=== PATIENT | male | born 1975 | race Caucasian/White ===

== ENCOUNTER 2021-05-23 20:41 | Emergency (ER) | payer SELFPAY ==
[~2021-05-23] VITALS: Ht 177.8 cm; Wt 77.1 kg
[2021-05-23 20:41] VITALS: BP_SYST 193
--- NOTE | 2021-05-23 20:41 | NUR ---
Placed in room 01 . Placed on monitoring manager, blood pressure machine and pulse oximeter. To gown for exam. Side rails up. Report given to CARLOS Benson
--- NOTE | 2021-05-23 21:05 | NUR ---
ALESSANDRO DASILVA at bedside examining patient.
[2021-05-23] MEDS ORDERED: NACL 0.9% 2,000 ML IV ONE (21:15)
[2021-05-23] MEDS ORDERED: LORazepam 2 MG/ML VIAL IVP ONE (21:15)
[2021-05-23] MEDS ORDERED: chlordiazePOXIDE HCL 25 MG CAPSULE PO ONE (21:30)
[2021-05-23 21:34] LABS: BASOPHILS # (AUTO) 0.1 K/uL (0.0-0.2); BASOPHILS % (AUTO) 0.7 % (0.0-2.0); EOSINOPHILS # (AUTO) 0.1 K/uL (0.0-0.4); EOSINOPHILS % (AUTO) 1.1 % (0.0-4.0); HEMATOCRIT 43.2 % (36-54); HEMOGLOBIN 14.4 g/dL (14.0-18.0); LYMPHOCYTES # (AUTO) 2.2 K/uL (1.0-5.5); LYMPHOCYTES % (AUTO) 22.8 % (20.5-51.5); MEAN CORPUSCULAR HEMOGLOBIN 27 pg (27-31); MEAN CORPUSCULAR HGB CONC 33 % (32-36); MEAN CORPUSCULAR VOLUME 83 fL (79.0-98.0); MONOCYTES # (AUTO) 0.5 K/uL (0.0-1.0); MONOCYTES % (AUTO) 5.1 % (1.7-9.3); NEUTROPHILS # (AUTO) 6.8 K/uL (1.8-7.7); NEUTROPHILS % (AUTO) 70.3 % (40.0-70.0); PLATELET COUNT (AUTO) 204 K/uL (130-430); RED BLOOD CELL COUNT(AUTO) 5.23 MIL/uL (4.2-6.2); RED CELL DISTRIBUTION WIDTH 14.5 % (9.0-15.0); WHITE BLOOD COUNT (AUTO) 9.7 K/uL (4.8-10.8)
[2021-05-23 21:54] LABS: CREATININE 0.91 mg/dL (0.55-1.30); POTASSIUM 3.7 mmol/L (3.5-5.1)
[2021-05-23 22:06] LABS: TOTAL BILIRUBIN 0.9 mg/dL (0.0-1.0)
--- NOTE | 2021-05-23 22:22 | NUR ---
Pt resting comfortable, no complaints of pain
[2021-05-23] MEDS ORDERED: hydrALAZINE HCL 20 MG/ML VIAL IVP ONE (22:45)
--- NOTE | 2021-05-23 22:45 | NUR ---
Reported htn, orders to follow
--- NOTE | 2021-05-23 22:55 | NUR ---
No difficets noted with neuro checks
[2021-05-24 00:35] LABS: BARBITURATE, URINE NEGATIVE (NEG <=200); METHAMPHETAMINES SCREEN,URINE NEGATIVE (NEG <=500); URINE AMPHETAMINE NEGATIVE (NEG <=500)
[2021-05-24 00:36] LABS: BENZODIAZEPINE, URINE NEGATIVE (NEG <=150); CANNABINOID, URINE POSITIVE (NEG <=50); COCAINE, URINE NEGATIVE (NEG <=150); OPIATE, URINE NEGATIVE (NEG <=100); PHENCYCLIDINE SCREEN,URINE NEGATIVE (NEG <=25); UR TRICYCLIC ANTIDEPRESSANTS NEGATIVE (NEG <=300); URINE METHADONE NEGATIVE (NEG <=200); URINE OXYCODONE SCREEN NEGATIVE (NEG <=100); URINE PROPOXYPHENE SCREEN NEGATIVE (NEG <=300)
--- NOTE | 2021-05-24 01:25 | NUR ---
Reported htn, orders to follow
[2021-05-24] MEDS ORDERED: LISINOPRIL 10 MG TABLET (PRINIVIL) PO ONE (01:30)
--- NOTE | 2021-05-24 05:51 | NUR ---
Pt sleep no signs of distress or pain
--- NOTE | 2021-05-24 07:31 | NUR ---
PT WITH EYES CLOSED, ON GURNEY WELL. PT AAOX3, IN NAD. PLAN OF CARE INFORMED, VERBALIZED UNDERSTANDING. VSS.
--- NOTE | 2021-05-24 08:50 | NUR ---
MINDY [facility]ART [facility] HERE TO MERCHANDISE FLOW TEAM MEMBER PT TO TRANSFER TO [facility], ACCEPTING DR HENRIQUE Thorpe, REPORT GIVEN TO EKTA THURMAN RN.PT STABLE FOR TRANSFER. VSS, PT AAOX3, IN NAD. NO NEURO DEFICITS NOTED. WALKED TO [facility]. AT BEDSIDE, WILL BE DRBALBIR THERE.
[2021-05-24 08:52] VITALS: BP_SYST 117
--- NOTE | 2021-05-24 08:54 | NUR ---
Patient to be transferred to [facility]. Is being transferred due to higher level of care/INSURANCE. Receiving facility has accepting physician and available space. ER physician has signed transfer form. Patient or responsible alliance party has agreed to transfer and signed form. Patient belongings inventoried and will be sent with patient. Copy of nursing notes, lab reports, EKG, Physicians Orders and X-rays to be sent with patient. Report called to at receiving facility. Receiving physician is . ambulance service has been called for transfer.
== END 2021-05-24 08:52 | disposition short-term general hospital (02) ==
LOC: SED 20:41
DX: S00.83XA Contusion of other part of head, initial encounter (principal); R32 Unspecified urinary incontinence; I10 Essential (primary) hypertension; F10.239 Alcohol dependence with withdrawal, unspecified; F17.200 Nicotine dependence, unspecified, uncomplicated; Z20.822 Contact with and (suspected) exposure to COVID-19; X58.XXXA Exposure to other specified factors, initial encounter; Y93.89 Activity, other specified; Y92.89 Other specified places as the place of occurrence of the external cause; Y99.8 Other external cause status
CPT/HCPCS: 36415; 70450; 71045; 76376; 80053; 80307; 82962; 83735; 85025; 87426; 93005; 96361; 96374; 96375; 99285; J0360; J2060; J7030